=== PATIENT | male | born 1935 ===

== ENCOUNTER 2019-10-14 23:15 | Inpatient (IN) | payer OTHER ==
[~2019-10-14] VITALS: Ht 177.8 cm; Wt 77.1 kg
[2019-10-14] MEDS ORDERED: LANTUS SOL100 UNIT/1 (23:19)
[2019-10-14] MEDS ORDERED: TAMS0.4C (23:19)
[2019-10-14] MEDS ORDERED: VITAMIN D3400 UNIT (23:19)
[2019-10-14] MEDS ORDERED: LIPITOR40 MG (23:20)
[2019-10-14] MEDS ORDERED: VITAMIN B-121000 MC4 (23:20)
== END 2019-10-24 12:28 | disposition home or self-care (01) | DRG 637 ==
LOC: ER 23:15 → SEC-K 10-15 10:22 → MEDJ 10-15 10:22
PROVIDERS: ADMIT Internal Medicine
PROC: BW21Y0Z Computerized Tomography (CT Scan) of Abdomen and Pelvis using Other Contrast, Unenhanced and Enhanced (ICD-10-PCS; principal; 2019-10-15)
DX: E11.65 Type 2 diabetes mellitus with hyperglycemia (principal); R65.20 Severe sepsis without septic shock; N39.0 Urinary tract infection, site not specified; C18.8 Malignant neoplasm of overlapping sites of colon; A28.0 Pasteurellosis; I11.9 Hypertensive heart disease without heart failure; B96.5 Pseudomonas (aeruginosa) (mallei) (pseudomallei) as the cause of diseases classified elsewhere; R31.29 Other microscopic hematuria; K59.09 Other constipation; N40.0 Benign prostatic hyperplasia without lower urinary tract symptoms; Z79.4 Long term (current) use of insulin

== ENCOUNTER 2021-09-20 22:57 | Inpatient (IN) | payer OTHER ==
[~2021-09-20] VITALS: Ht 177.8 cm; Wt 59.0 kg
[~2021-09-20 22:57] MED LIST: LANTUS SOL100 UNIT/1; LIPITOR40 MG; TAMS0.4C; VITAMIN B-121000 MC4; VITAMIN D3400 UNIT
--- NOTE | 2021-09-20 23:11 | NUR ---
PACIENTE MASCULINO, ALERTA Y ORIENTADO. REFIERE DOLOR ABDOMINAL, DESDE HACE 3 SEMANAS. PACIENTE REFIERE DOLOR AL ORINAR. SE MIDE S/V. SE UBICA EN NIECY DE OBSERVACION.
--- NOTE | 2021-09-20 23:52 | NUR ---
IV LINE IS STARTED ON PATIENT'S RIGHT ARM AND BLOOD SAMPLES ARE TAKEN FROM PATIENT'S RIGHT ARM. SALINE LOCK IS PLACED ON IV LINE AND IV FLUIDS ARE ADMINISTERED ACCORDING TO DOCTOR'S ORDERS.
--- NOTE | 2021-09-21 07:40 | NUR ---
SE RECIBE PTE MASCULINO DE 86 YRS ALERTA CONCIENTE Y TRANQUILO, PTE SE OBSERVA CON IVF;S PATENTE Y CONSTANTINE DE EDEMA. SE MANTIENE EN ESPERA DE MEDICO CONSULTAOR DR.DIAZ DEVINE.
--- NOTE | 2021-09-21 09:18 | NUR ---
SE LE REPITE DXT LA CUAL DA 360MG DL SE LE PACO MEDICAMENTOS ORDENADO POR EL DR.DIAZ ROWELL Y SE LE SHINE B/C DE DESTINY. SE ORIENTA A FAMILIAR Y PACIENTE EL PROCESO DE ADMICION Y PTE SE LE DA DESAYUNO/ SE MANTIENE BAJO OBSERVACION.
== END 2021-09-25 22:47 | disposition home or self-care (01) | DRG 638 ==
LOC: ER 22:57 → SEC-K 09-21 08:30 → MEDJ 09-21 08:30
PROVIDERS: ADMIT Internal Medicine; ATTEND Internal Medicine
DX: E11.65 Type 2 diabetes mellitus with hyperglycemia (principal); N39.0 Urinary tract infection, site not specified; R60.0 Localized edema; R30.0 Dysuria; I10 Essential (primary) hypertension; E78.00 Pure hypercholesterolemia, unspecified; Z85.038 Personal history of other malignant neoplasm of large intestine; Z79.4 Long term (current) use of insulin